=== PATIENT | female | born 1975 | race Asian ===

== ENCOUNTER 2017-12-19 09:05 | Emergency (ER) | payer OTHER ==
[~2017-12-19] VITALS: Ht 144.8 cm; Wt 49.5 kg
[2017-12-19] MEDS ORDERED: PERTUSS(ACELL),DIPH,TET VAC/PF 0.5 ML VIAL IM ONE (10:30)
[2017-12-19] MEDS ORDERED: AMOX TR/POT CLAV 500 MG/125 MG TABLET PO ONE (10:30)
[2017-12-19] MEDS ORDERED: RABIES IMMUNE GLOBULIN/THIMER 150 UNITS/ML 10 ML VIAL IM ONE (10:45)
[2017-12-19] MEDS ORDERED: RABIES VAC,PF CHICK-EMB CELL 2.5 UNITS/ML SYRINGE IM ONE (10:45)
[2017-12-19 11:40] VITALS: BP 137/83
== END 2017-12-19 11:56 | disposition home or self-care (01) ==
LOC: EMS 09:06
DX: S51.852A Open bite of left forearm, initial encounter (principal); W55.01XA Bitten by cat, initial encounter; Y93.89 Activity, other specified; Y92.89 Other specified places as the place of occurrence of the external cause; Y99.8 Other external cause status
CPT/HCPCS: 90375; 90471; 90472; 90675; 90715; 96372; 99284

== ENCOUNTER 2017-12-27 10:02 | Emergency (ER) | payer OTHER ==
[~2017-12-27] VITALS: Ht 144.8 cm; Wt 46.4 kg
[2017-12-27] MEDS ORDERED: RABIES VAC,PF CHICK-EMB CELL 2.5 UNITS/ML SYRINGE IM ONE (11:45)
[2017-12-27 12:02] VITALS: BP 137/82
== END 2017-12-27 12:13 | disposition home or self-care (01) ==
LOC: EMS 10:03
DX: Z23 Encounter for immunization (principal); W55.01XS Bitten by cat, sequela
CPT/HCPCS: 90471; 90675; 99283